=== PATIENT | male | born 1970 | race Two or more races ===

== ENCOUNTER 2018-04-08 10:16 | Emergency (ER) | payer OTHER ==
[~2018-04-08] VITALS: Ht 170.2 cm; Wt 122.5 kg
[2018-04-08 10:36] VITALS: BP 146/86
--- NOTE | 2018-04-08 10:36 | NUR ---
ED Nurse Note: Pt AAO x4 present at ER c/o 09/04 Lt eye pain due to foreign object in Lt eye at work. Eye vision examination done by nurse Lt eye 20/100 and Rt eye 20/40. VSS, Pt calm and cooperative with initial assessment.
[2018-04-08] MEDS ORDERED: Fluorescein Strips LEFT EYE ONE (10:45)
[2018-04-08] MEDS ORDERED: Tetracaine 0.5% Opth 4ml Soln LEFT EYE ONE (10:45)
[2018-04-08] MEDS ORDERED: GENTAK5 ML LEFT EYE (11:07)
[2018-04-08 11:20] VITALS: BP 142/98
--- NOTE | 2018-04-08 11:20 | NUR ---
ED Nurse Note: Pt was cleared to be dishcarged from [facility]. Pt instructed on discharge and prescribed medication. Pt verbalized understanding. Pt was told to follow up with work compensation doctor. Worker's compensation paper was filled out and sent out with patient. Pt VSS, ambulated to be discharged in stable condition. ID band removed.
--- NOTE | 2018-04-08 22:44 | Emergency Room Report ---
History of Present Illness General Chief Complaint: Eye Problems Source: Patient Present Illness HPI Patient presented for increased left eye pain. He reports having some charcoal enter into his eye.Patient denies any change in vision. He reports having increased itching to the left eyes. He reports having some increased drainage and discharge. He reports having some left eye redness. Eye was somewhat itchy. Patient's injury occurs at work.He denies any contact lens use. Allergies: Coded Allergies: No Known Allergies (Unverified , 04/08/18) Patient History Past Medical History: see triage record Nursing Documentation-[facility] Past Medical History: No Stated History Review of Systems All Other Systems: negative except mentioned in HPI Physical Exam Vital Signs Date Time Temp Pulse Resp B/P (MAP) Pulse Ox O2 Delivery O2 Flow Rate FiO2 04/08/18 10:28 98.1 65 15 149/86 96 Room Air General Appearance: well appearing, no apparent distress, alert, GCS 15 Head: normocephalic, atraumatic Eyes: bilateral eye other - left eye conjunctival redness, no fluorescein dye uptake, no foreign material identified ENT: hearing grossly normal, normal voice Neck: full range of motion, supple Respiratory: no respiratory distress, speaking full sentences Musculoskeletal: no calf tenderness Neurologic: normal gait Psychiatric: mood/affect normal Skin: no rash Medical Decision Making Diagnostic Impression: Primary Impression: Conjunctivitis ER Course Presented for red eye. Differential diagnosis included but wasn't limited to glaucoma, iritis, corneal abrasion, bacterial conjunctivitis, viral conjunctivitis. Patient has a benign exam and does not appear to require any further imaging or laboratory testing at this time. Patient was given prescription for topical antibiotics. He was advised to remain off of work until infection improves. Patient was also advised to follow-up with ophthalmology for repeat examination. He is advised to return if he began having any changes in his vision or other concerns. Last Vital Signs Date Time Temp Pulse Resp B/P (MAP) Pulse Ox O2 Delivery O2 Flow Rate FiO2 04/08/18 11:20 98.2 91 18 142/98 98 04/08/18 11:20 Room Air Status: improved Disposition: HOME, SELF-CARE Condition: Stable Scripts Gentamicin Sulfate* (GENTAK*) 5 Ml Drops 1 DROP LEFT EYE Q4H, #1 DROP 0 Refills Prov: Jack Maldonado MD 04/08/18 Patient Instructions: Bacterial Conjunctivitis Jack Maldonado MD Apr 08, 2018 22:44
== END 2018-04-08 11:30 | disposition home or self-care (01) ==
LOC: EMR 11:30
DX: H10.9 Unspecified conjunctivitis (principal)
CPT/HCPCS: 99282